=== PATIENT | female | born 1950 | race Hispanic/Latino ===

== ENCOUNTER 2018-07-22 18:06 | Inpatient (IN) | payer OTHER ==
[~2018-07-22] VITALS: Ht 157.5 cm; Wt 73.0 kg
[2018-07-22 20:03] LABS: BASOPHILS % (AUTO) 0.3 % (0.0-5.0); EOSINOPHILS % (AUTO) 2.1 % (0.0-8.0); HEMATOCRIT 30.2 % (36-48); LYMPHOCYTES % (AUTO) 24.9 % (21.0-51.0); MEAN CORPUSCULAR HEMOGLOBIN 28.9 pg (27.0-33.0); MEAN CORPUSCULAR HGB CONC 33.1 g/dL (32.0-36.0); MEAN CORPUSCULAR VOLUME 87.3 fL (79-99); MONOCYTES % (AUTO) 16.7 % (3.0-13.0); NUCLEATED RED BLOOD CELLS 0.2 % (0.0-0.19); PLATELET COUNT (AUTO) 138 K/uL (130-400); RED BLOOD CELL COUNT(AUTO) 3.46 MIL/uL (4.00-5.50); RED CELL DISTRIBUTION WIDTH 14.9 % (11.0-15.5); WHITE BLOOD COUNT (AUTO) 6.3 K/uL (4.8-10.8)
[2018-07-22 20:10] LABS: APPEARANCE,URINE Clear (CLEAR); BILIRUBIN,URINE Negative (NEGATIVE); COLOR,URINE Yellow (YELLOW); GLUCOSE, URINE (UA) Negative (NEGATIVE); KETONES,URINE 15 mg/dL (NEGATIVE); LEUKOCYTE ESTERASE ,URINE Negative (NEGATIVE); NITRATE,URINE Negative (NEGATIVE); OCCULT BLOOD,URINE Moderate (NEGATIVE); PROTEIN,URINE Trace (NEGATIVE); UROBILINOGEN,URINE 0.2 mg/dL (0.2-1.0)
[2018-07-22 20:31] LABS: CREATININE 1.3 mg/dL (0.5-1.5); POTASSIUM 3.4 mmol/L (3.5-5.1)
[2018-07-22 20:35] LABS: ALBUMIN 2.1 g/dL (3.5-5.0); BILIRUBIN,TOTAL 0.4 mg/dL (0.2-1.0); TOTAL PROTEIN, SERUM 5.7 g/dL (6.0-8.3)
[2018-07-22 20:39] LABS: BACTERIA,URINE Rare /HPF (None Seen); WBC,URINE 0-1 /HPF (0-1)
[2018-07-22] MEDS ORDERED: ZOSYN 3.375GM+NS 50ML 50 ML IV ONE (21:48)
[2018-07-23 00:15] VITALS: BP 127/61
[2018-07-23] MEDS ORDERED: ZOSYN 3.375GM+NS 50ML 50 ML IV SCH (00:15)
[2018-07-23] MEDS ORDERED: ACETAMINOPHEN 325 MG TAB PO PRN (00:15)
[2018-07-23] MEDS ORDERED: ONDANSETRON HCL 4 MG/2 ML VIAL IV PRN (00:15)
[2018-07-23] MEDS ORDERED: VANCOMYCIN PROTOCOL PER PHARMACY IV SCH (00:15)
[2018-07-23] MEDS ORDERED: VANCOMYCIN 1GM+NS 250ML 250 ML IV ONE (00:30)
[2018-07-23] MEDS: SODIUM CHLORIDE 0.9% 1000ML 1,000 ML IV SCH ×2 (00:36→13:43)
[2018-07-23] MEDS ORDERED: VANCOMYCIN 1GM+NS 250ML 250 ML IV SCH (01:00)
[2018-07-23 04:00] VITALS: BP 115/54
[2018-07-23 08:15] VITALS: BP 139/57
[2018-07-23] MEDS ORDERED: COMPOUND IV REFRIGERATED 1 EACH IVSOLN MISC PRN (09:30)
[2018-07-23] MEDS: PANTOPRAZOLE SODIUM 40 MG TABLET.DR PO SCH (10:10)
[2018-07-23] MEDS: INSULIN HUMULIN R 100 UNIT/ML 3ML SQ SCH ×3 (11:30→21:00)
[2018-07-23] MEDS ORDERED: AMLO5TAB7 PO (11:52)
[2018-07-23] MEDS ORDERED: PRAV10TA39 PO (11:52)
[2018-07-23] MEDS ORDERED: HYDR12.530 PO (11:52)
[2018-07-23] MEDS ORDERED: METF-444 PO (11:52)
[2018-07-23 11:54] VITALS: BP 111/48
[2018-07-23] MEDS: ZOSYN 3.375GM+NS 50ML 50 ML IV SCH ×2 (13:44→22:10)
[2018-07-23 15:51] VITALS: BP 111/50
[2018-07-23] MEDS: VANCOMYCIN 750MG + NS 250 ML IV SCH ×2 (17:12)
[2018-07-23 21:02] VITALS: BP 111/56
[2018-07-24 01:20] VITALS: BP 113/58
[2018-07-24 05:40] VITALS: BP 123/57
[2018-07-24 05:46] LABS: HEMATOCRIT 26.2 % (36-48); MEAN CORPUSCULAR HEMOGLOBIN 28.9 pg (27.0-33.0); MEAN CORPUSCULAR HGB CONC 33.2 g/dL (32.0-36.0); MEAN CORPUSCULAR VOLUME 86.9 fL (79-99); NUCLEATED RED BLOOD CELLS 0.2 % (0.0-0.19); PLATELET COUNT (AUTO) 139 K/uL (130-400); RED BLOOD CELL COUNT(AUTO) 3.02 MIL/uL (4.00-5.50); RED CELL DISTRIBUTION WIDTH 14.6 % (11.0-15.5); WHITE BLOOD COUNT (AUTO) 9.2 K/uL (4.8-10.8)
[2018-07-24 05:57] LABS: HEMOGLOBIN A1C 6.7 % (4.0-6.0)
[2018-07-24 06:23] LABS: ALBUMIN 1.8 g/dL (3.5-5.0); BILIRUBIN,TOTAL 0.2 mg/dL (0.2-1.0); CREATININE 0.9 mg/dL (0.5-1.5); MAGNESIUM 1.5 mg/dL (1.80-2.40); TOTAL PROTEIN, SERUM 4.8 g/dL (6.0-8.3)
[2018-07-24] MEDS: ZOSYN 3.375GM+NS 50ML 50 ML IV SCH ×2 (06:23→13:18)
[2018-07-24] MEDS: INSULIN HUMULIN R 100 UNIT/ML 3ML SQ SCH ×4 (06:23→21:00)
[2018-07-24] MEDS: SODIUM CHLORIDE 0.9% 1000ML 1,000 ML IV SCH ×3 (06:24→16:03)
[2018-07-24 06:26] LABS: POTASSIUM 2.7 mmol/L (3.5-5.1)
[2018-07-24] MEDS ORDERED: POTASSIUM CHLORIDE 20MEQ/100ML 100 ML IV PRN (07:00)
[2018-07-24] MEDS ORDERED: MAGNESIUM 2GM PREMIX 50ML 50 ML IV PRN (07:00)
[2018-07-24] MEDS ORDERED: LIDOCAINE HCL-MPF 1% 2ML VIAL IVP PRN (07:00)
[2018-07-24] MEDS ORDERED: POTASSIUM CHLORIDE 10% ELIXIR 20 MEQ/15 ML UDCUP PO PRN (07:00)
[2018-07-24] MEDS: HYDROCHLOROTHIAZIDE 25 MG TABLET PO SCH (08:44)
[2018-07-24] MEDS: AMLODIPINE BESYLATE 5 MG TAB PO SCH (08:44)
[2018-07-24] MEDS: PANTOPRAZOLE SODIUM 40 MG TABLET.DR PO SCH (08:44)
[2018-07-24] MEDS: METFORMIN HCL 500 MG TAB.SR.24H PO SCH (08:44)
[2018-07-24 08:45] VITALS: BP 118/59
[2018-07-24] MEDS: POTASSIUM CHLORIDE 20 MEQ ERTAB PO PRN ×4 (08:45→17:54)
[2018-07-24 11:44] VITALS: BP 110/58
[2018-07-24 16:05] VITALS: BP 115/58
[2018-07-24] MEDS: VANCOMYCIN 750MG + NS 250 ML IV SCH ×2 (17:54)
[2018-07-24 19:00] VITALS: BP 119/49
[2018-07-25] VITALS (7 sets, daily range): BP systolic 112–151; BP diastolic 53–66
[2018-07-25] MEDS: ZOSYN 3.375GM+NS 50ML 50 ML IV SCH ×4 (00:16→21:01)
[2018-07-25] MEDS: POTASSIUM CHLORIDE 20 MEQ ERTAB PO PRN ×2 (00:17→02:09)
[2018-07-25] MEDS: SIMVASTATIN 10 MG TABLET PO SCH ×2 (00:19→21:01)
[2018-07-25] MEDS: SODIUM CHLORIDE 0.9% 1000ML 1,000 ML IV SCH ×3 (02:09→21:06)
[2018-07-25 04:52] LABS: BASOPHILS % (AUTO) 0.4 % (0.0-5.0); EOSINOPHILS % (AUTO) 2.5 % (0.0-8.0); HEMATOCRIT 26.3 % (36-48); LYMPHOCYTES % (AUTO) 21.8 % (21.0-51.0); MEAN CORPUSCULAR HGB CONC 33.2 g/dL (32.0-36.0); MEAN CORPUSCULAR VOLUME 87.5 fL (79-99); MONOCYTES % (AUTO) 4.3 % (3.0-13.0); NUCLEATED RED BLOOD CELLS 0.2 % (0.0-0.19); PLATELET COUNT (AUTO) 170 K/uL (130-400); RED BLOOD CELL COUNT(AUTO) 3.01 MIL/uL (4.00-5.50); RED CELL DISTRIBUTION WIDTH 15.3 % (11.0-15.5); WHITE BLOOD COUNT (AUTO) 8.8 K/uL (4.8-10.8)
[2018-07-25 04:56] LABS: CREATININE 0.8 mg/dL (0.5-1.5); MAGNESIUM 1.7 mg/dL (1.80-2.40); POTASSIUM 4.2 mmol/L (3.5-5.1)
[2018-07-25] MEDS: INSULIN HUMULIN R 100 UNIT/ML 3ML SQ SCH ×4 (06:36→21:00)
[2018-07-25] MEDS: PANTOPRAZOLE SODIUM 40 MG TABLET.DR PO SCH (09:15)
[2018-07-25] MEDS: AMLODIPINE BESYLATE 5 MG TAB PO SCH (09:15)
[2018-07-25] MEDS: METFORMIN HCL 500 MG TAB.SR.24H PO SCH (09:15)
[2018-07-25] MEDS: HYDROCHLOROTHIAZIDE 25 MG TABLET PO SCH (09:15)
[2018-07-25] MEDS ORDERED: VANCOMYCIN 1.25 GM in SODIUM CHLORIDE 0.9% 250 ML IV ONE (12:30)
[2018-07-25] MEDS ORDERED: VANCOMYCIN 750MG + NS 250 ML IV SCH ×2 (18:00)
[2018-07-26 03:00] VITALS: BP_SYST 130; BP_DIAS 56; BP_DIAS 57
[2018-07-26] MEDS: ZOSYN 3.375GM+NS 50ML 50 ML IV SCH (04:43)
[2018-07-26 05:09] LABS: BASOPHILS % (AUTO) 0.3 % (0.0-5.0); EOSINOPHILS % (AUTO) 2.7 % (0.0-8.0); HEMATOCRIT 26.1 % (36-48); LYMPHOCYTES % (AUTO) 20.8 % (21.0-51.0); MEAN CORPUSCULAR HEMOGLOBIN 29.2 pg (27.0-33.0); MEAN CORPUSCULAR HGB CONC 33.2 g/dL (32.0-36.0); MEAN CORPUSCULAR VOLUME 88.2 fL (79-99); MONOCYTES % (AUTO) 6.2 % (3.0-13.0); NUCLEATED RED BLOOD CELLS 0.2 % (0.0-0.19); PLATELET COUNT (AUTO) 150 K/uL (130-400); RED BLOOD CELL COUNT(AUTO) 2.96 MIL/uL (4.00-5.50); RED CELL DISTRIBUTION WIDTH 15.4 % (11.0-15.5)
[2018-07-26 05:19] LABS: CREATININE 0.7 mg/dL (0.5-1.5); POTASSIUM 4.4 mmol/L (3.5-5.1)
[2018-07-26] MEDS: INSULIN HUMULIN R 100 UNIT/ML 3ML SQ SCH (05:49)
[2018-07-26 07:49] VITALS: BP 134/68
[2018-07-26] MEDS ORDERED: LEVO500T2 PO (08:14)
[2018-07-26] MEDS: METFORMIN HCL 500 MG TAB.SR.24H PO SCH (08:16)
[2018-07-26] MEDS: HYDROCHLOROTHIAZIDE 25 MG TABLET PO SCH (08:17)
[2018-07-26] MEDS: AMLODIPINE BESYLATE 5 MG TAB PO SCH (08:17)
[2018-07-26] MEDS: PANTOPRAZOLE SODIUM 40 MG TABLET.DR PO SCH (08:17)
[2018-07-26 11:10] VITALS: BP 144/73
== END 2018-07-26 12:50 | disposition home or self-care (01) | DRG 872 ==
LOC: EDH 18:06 → EDHIP 21:40 → OBSVTOIN 21:40 → INTOOBSV 21:40 → 3AH 23:49
PROVIDERS: ADMIT Internal Medicine; ATTEND Internal Medicine
DX: A41.9 Sepsis, unspecified organism (principal); E87.1 Hypo-osmolality and hyponatremia; E44.0 Moderate protein-calorie malnutrition; C16.9 Malignant neoplasm of stomach, unspecified; C78.7 Secondary malignant neoplasm of liver and intrahepatic bile duct; E83.42 Hypomagnesemia; E87.6 Hypokalemia; E11.9 Type 2 diabetes mellitus without complications; I10 Essential (primary) hypertension; Z90.3 Acquired absence of stomach [part of]; Z68.29 Body mass index [BMI] 29.0-29.9, adult; Z23 Encounter for immunization
CPT/HCPCS: 36415; 71046; 80048; 80053; 81001; 82948; 83036; 83605; 83735; 85025; 85027; 87040; G0008; J2543; J3370; J3475; J3480; J7030; Q2038

== ENCOUNTER → 2023-07-20 | Outpatient (CLI) | payer OTHER ==
[~2023-07-20] MED LIST: AMLO-257 PO; HYDR12.530 PO; LEVO500T2 PO; METF-444 PO; PRAV10TA39 PO
== END | disposition home or self-care (01) ==
LOC: LAB 13:33
PROVIDERS: ATTEND Internal Medicine
DX: Z01.818 Encounter for other preprocedural examination (principal); M16.11 Unilateral primary osteoarthritis, right hip
CPT/HCPCS: 93005